=== PATIENT | male | born 1955 | race Two or more races ===

== ENCOUNTER 2019-10-12 17:36 | Inpatient (IN) | payer OTHER ==
[~2019-10-12] VITALS: Ht 175.3 cm; Wt 114.4 kg
[~2019-10-12 17:36] MED LIST: AMLO5TAB10 PO; LISI-130 PO
[2019-10-12] MEDS ORDERED: IV NORMAL SALINE 1000ML BAG 1,000 ML IV ONE (18:45)
[2019-10-12 19:02] LABS: BASO % 1 % (0-3); EOS % 1 % (0-3); HEMATOCRIT 43.2 % (39.0-53.0); HEMOGLOBIN 14.6 g/dL (13.0-17.5); LYMPH # 0.9 x10^3/uL (1.0-4.8); LYMPH % 19 % (24-48); MEAN CORPUSCULAR HEMOGLOBIN 30 pg (25-35); MEAN CORPUSCULAR HGB CONC 34 g/dL (31-37); MEAN CORPUSCULAR VOLUME 89 fL (79-100); MONO # 0.6 x10^3/uL (0.0-1.1); MONO % 12 % (0-9); NEUT # 3.2 x10^3/uL (1.8-7.7); NEUT % 68 % (31-73); PLATELET COUNT 255 x10^3/uL (140-400); RED BLOOD COUNT 4.85 x10^6/uL (4.30-5.70); WHITE BLOOD COUNT 4.7 x10^3/uL (4.0-11.0)
[2019-10-12 19:13] LABS: CALCIUM 9.5 mg/dL (8.5-10.1); CREATININE 0.9 mg/dL (0.7-1.3); GFR 85.8; POTASSIUM 3.9 mmol/L (3.5-5.1)
[2019-10-12 19:18] LABS: ALBUMIN 3.7 g/dL (3.4-5.0); TOTAL BILIRUBIN 5.8 mg/dL (0.2-1.0); TOTAL PROTEIN 7.5 g/dL (6.4-8.2)
[2019-10-12 19:59] LABS: BILIRUBIN,URINE MODERATE (NEG); CLARITY,URINE CLEAR; COLOR,URINE AMBER; NITRITE,URINE NEGATIVE (NEG); PROTEIN,URINE NEGATIVE (NEG-TRACE)
[2019-10-12 20:09] LABS: BACTERIA,URINE FEW /HPF (0-FEW); RBC,URINE OCC /HPF (0-2); SQUAMOUS EPITHELIAL CELL,UR OCC /LPF
[2019-10-12 20:10] LABS: AMORPHOUS SEDIMENT,UR PRESENT /HPF
--- NOTE | 2019-10-12 20:10 | RAD ---
Clinical History: Elevated liver enzymes. Technique: Sonographic examination of the right upper quadrant of the abdomen was performed and multiple static images were obtained. Comparison: none Findings: The study is limited by large body habitus. There is increased echogenicity in the liver which further limits ultrasound sensitivity for possible liver lesion. The gallbladder is contracted and not well evaluated. The common bile duct appears normal measures 5 mm in diameter. The right kidney is seen without hydronephrosis measures 12 cm in length. IMPRESSION: Fatty infiltration of the liver. No acute findings. Electronically signed by: Ricardo Chen III, MD (10/12/2019 8:06 PM) [facility]
--- NOTE | 2019-10-12 20:23 | PHYS DOC ---
Past Medical History Past Medical History: Hypertension Past Surgical History: Other Additional Past Surgical Histo: RT ankle/ pneumothorax R/T crush injury years ago Alcohol Use: Occasionally Additional Information: pt states he stopped drinking 8 months ago Drug Use: None Adult General Chief Complaint Chief Complaint: ABNORMAL LABS [facility] HPI Patient is a 63 year old male, accompanied by his , who presents to the emergency department after being sent over from urgent care. Patient states he was recently at urgent care and was diagnosed with a sinus infection about 2 weeks ago. Patient states that on September 24, 2019 he began taking Augmentin that was prescribed, he took all but 3 tablets of the 10 day prescription. He reports that he started itching a week ago so he went back to urgent care on October 09, 2019 and had some labs drawn. Patient denies ever having any rash, he states he thought that the itching was due to the medications and that is why he did not take the last 3 doses. He denies any shortness of breath, wheezing, swelling, or difficulty swallowing associated with itching. He states that on the he also noticed that his eyes appeared yellow and that his urine was darker than normal. He reported concern because he had a niece who had liver problems in the past and her only complaint was itching. He denies any pain at this time. Review of Systems Review of Systems Constitutional: Denies fever or chills [] Eyes: Denies change in visual acuity, redness, or eye pain; see HPI [] HENT: Denies nasal congestion or sore throat [] Respiratory: Denies cough or shortness of breath [] Cardiovascular: No additional information not addressed in HPI [] GI: Denies abdominal pain, nausea, vomiting, or diarrhea [] : Denies dysuria or hematuria; see HPI [] Musculoskeletal: Denies back pain or joint pain [] Integument: Denies rash or skin lesions [] Neurologic: Denies headache, focal weakness or sensory changes [] Complete systems were reviewed and found to be within normal limits, except as documented in this note. Current Medications Current Medications Current Medications Medications (Trade) Dose Ordered Sig/Desmond Start Time Stop Time Status Last Admin Dose Admin Sodium Chloride 1,000 ml @ 1,000 mls/hr 1X ONCE 10/12/19 18:45 10/12/19 19:44 DC 10/12/19 18:45 1,000 MLS/HR Allergies Allergies Physical Exam Physical Exam Constitutional: Well developed, well nourished, no acute distress, non-toxic hernandez earance, obses. [] HENT: Normocephalic, atraumatic, bilateral external ears normal, oropharynx moist, no oral exudates, nose normal. [] Eyes: PERRLA, EOMI, conjunctiva jaundiced, no discharge. [] Neck: Normal range of motion, no stridor. [] Cardiovascular:Heart rate regular rhythm, no murmur [] Lungs & Thorax: Bilateral breath sounds clear to auscultation, Respirations even and unlabored, no retractions, no respiratory distress [] Abdomen: Distended, Bowel sounds normal, soft, no tenderness, no masses, no pulsatile masses. [] Skin: Warm, dry, no erythema, no rash, jaundiced. [] Back: No tenderness [] Extremities: No cyanosis, ROM intact, no edema. [] Neurologic: Alert and oriented X 3, no focal deficits noted. [] Psychologic: Affect normal, judgement normal, mood normal. [] Current Patient Data Vital Signs Vital Signs Date Time Temp Pulse Resp B/P (MAP) Pulse Ox O2 Delivery O2 Flow Rate FiO2 10/12/19 20:00 66 24 141/84 (103) 99 Room Air 10/12/19 17:40 98.6 98.6 Lab Values Laboratory Tests Test 10/12/19 18:55 10/12/19 19:52 White Blood Count 4.7 x10^3/uL (4.0-11.0) Red Blood Count 4.85 x10^6/uL (4.30-5.70) Hemoglobin 14.6 g/dL (13.0-17.5) Hematocrit 43.2 % (39.0-53.0) Mean Corpuscular Volume 89 fL (79-100) Mean Corpuscular Hemoglobin 30 pg (25-35) Mean Corpuscular Hemoglobin Concent 34 g/dL (31-37) Red Cell Distribution Width 14.0 % (11.5-14.5) Platelet Count 255 x10^3/uL (140-400) Neutrophils (%) (Auto) 68 % (31-73) Lymphocytes (%) (Auto) 19 % (24-48) L Monocytes (%) (Auto) 12 % (0-9) H Eosinophils (%) (Auto) 1 % (0-3) Basophils (%) (Auto) 1 % (0-3) Neutrophils # (Auto) 3.2 x10^3/uL (1.8-7.7) Lymphocytes # (Auto) 0.9 x10^3/uL (1.0-4.8) L Monocytes # (Auto) 0.6 x10^3/uL (0.0-1.1) Eosinophils # (Auto) 0.0 x10^3/uL (0.0-0.7) Basophils # (Auto) 0.0 x10^3/uL (0.0-0.2) Sodium Level 143 mmol/L (136-145) Potassium Level 3.9 mmol/L (3.5-5.1) Chloride Level 105 mmol/L (98-107) Carbon Dioxide Level 27 mmol/L (21-32) Anion Gap 11 (6-14) Blood Urea Nitrogen 25 mg/dL (8-26) Creatinine 0.9 mg/dL (0.7-1.3) Estimated GFR (Cockcroft-Gault) 85.8 BUN/Creatinine Ratio 28 (6-20) H Glucose Level 93 mg/dL (70-99) Calcium Level 9.5 mg/dL (8.5-10.1) Magnesium Level 2.0 mg/dL (1.8-2.4) Total Bilirubin 5.8 mg/dL (0.2-1.0) H Direct Bilirubin 4.8 mg/dL (0.0-0.2) H Aspartate Amino Transferase (AST) 60 U/L (15-37) H Alanine Aminotransferase (ALT) 103 U/L (16-63) H Alkaline Phosphatase 208 U/L (46-116) H Total Protein 7.5 g/dL (6.4-8.2) Albumin 3.7 g/dL (3.4-5.0) Albumin/Globulin Ratio 1.0 (1.0-1.7) Lipase 155 U/L (73-393) Urine Collection Type Void Urine Color Luciana Urine Clarity Clear Urine pH 5.0 Urine Specific [place] 1.020 Urine Protein Negative mg/dL (NEG-TRACE) Urine Glucose (UA) Negative mg/dL (NEG) Urine Ketones (Stick) Negative mg/dL (NEG) Urine Blood Negative (NEG) Urine Nitrite Negative (NEG) Urine Bilirubin Moderate (NEG) Urine Urobilinogen Dipstick 1.0 mg/dL (0.2 mg/dL) Urine Leukocyte Esterase Negative (NEG) Urine RBC Occ /HPF (0-2) Urine WBC 5-10 /HPF (0-4) Urine Squamous Epithelial Cells Occ /LPF Urine Amorphous Sediment Present /HPF Urine Bacteria Few /HPF (0-FEW) Urine Mucus Slight /LPF Laboratory Tests 10/12/19 18:55 Laboratory Tests 10/12/19 18:55 EKG EKG [] Radiology/Procedures Radiology/Procedures PROCEDURE: ABDOMEN LTD Clinical History: Elevated liver enzymes. Technique: Sonographic examination of the right upper quadrant of the abdomen was performed and multiple static images were obtained. Comparison: none Findings: The study is limited by large body habitus. There is increased echogenicity in the liver which further limits ultrasound sensitivity for possible liver lesion. The gallbladder is contracted and not well evaluated. The common bile duct appears normal measures 5 mm in diameter. The right kidney is seen without hydronephrosis measures 12 cm in length. IMPRESSION: Fatty infiltration of the liver. No acute findings.[] Course & Med Decision Making Course & Med Decision Making Pertinent Labs and Imaging studies reviewed. (See chart for details) [address] Silveira who is the admitting physician, and care was assumed following discussion of patient. Will consult GI Patient's vital signs stable. Patient remains afebrile, appears nontoxic, respirations even and unlabored. Patient will be admitted to the med/surg floor. Patient's case and plan of care also discussed with Dr. Del Toro [] Dragon Disclaimer Dragon Disclaimer This electronic medical record was generated, in whole or in part, using a voice recognition dictation system. Departure Departure Impression: Primary Impression: Jaundice Additional Impression: Elevated liver enzymes Disposition: ADMITTED INPATIENT Admitting Physician: MONIKA (Fullbright) Condition: STABLE Referrals: ASHA GIL MD (PCP) Problem Qualifiers LOULOU EDWARDS APRN Oct 12, 2019 20:23
[2019-10-12] MEDS ORDERED: AMLO5TAB10 PO (22:00)
[2019-10-12] MEDS ORDERED: NAPR220C4 PO (22:11)
[2019-10-12] MEDS ORDERED: ACET325T9 PO (22:11)
[2019-10-12] MEDS: LISINOPRIL 20 MG TABLET PO SCH (22:41)
[2019-10-12] MEDS: amLODIPine BESYLATE 5 MG TABLET PO SCH (22:42)
[2019-10-12] MEDS ORDERED: NAPROXEN 250 MG TABLET PO PRN (22:45)
[2019-10-12 23:00] VITALS: BP 149/90
[2019-10-13] VITALS (7 sets, daily range): BP systolic 112–144; BP diastolic 61–77
--- NOTE | 2019-10-13 07:46 | PDOC1 ---
History and Physical Date of Admission Date of Admission DATE: 10/13/19 TIME: 07:42 Identification/Chief Complaint Chief Complaint Abdominal Pain Source Source: Chart review, Patient History of Present Illness History of Present Illness Mr Beaulieu is a 63 yo M w/ PMHx HTN brought to ED from urgent care by private vehicle by his for pruritis and jaundice. Patient states he was recently at urgent care and was diagnosed with a sinus infection about 2 weeks ago. He began taking Augmentin, but he stopped taking it on 10/09/19 due to yellowing of skin and pruritis. No pain. He reports that he started itching a week ago so he went back to urgent care on October 09, 2019 and had some labs drawn. He denies any shortness of breath, wheezing, swelling, or difficulty swallowing associated with itching and no pain. He states that on the he also noticed that his eyes appeared yellow and that his urine was darker than normal. He reported concern because he had a niece who had liver problems in the past and her only complaint was itching. He denies any pain at this time. Labs significant for Bilirubin 5.8, direct 4.8, AST 60, ALT 103, Alkaline phosphatase 206. RUQ US negative. Admitted for further dx and treatment. Past Medical History Pulmonary: No pertinent hx, Other CENTRAL NERVOUS SYSTEM: Other GI: No pertinent hx Heme/Onc: No pertinent hx Hepatobiliary: No pertinent hx Psych: No pertinent hx Musculoskeletal: Osteoarthritis, Other Infectious disease: No pertinent hx Renal/: No pertinent hx Endocrine: No pertinent hx Past Surgical History Past Surgical History RT ankle/ pneumothorax R/T crush injury years ago Past Surgical History: Other Family History Family History: Hypertension Social History Smoke: No ALCOHOL: occassional Drugs: None Current Problem List Problem List Problems Medical Problems: (1) Elevated liver enzymes Status: Acute (2) Jaundice Status: Acute Current Medications Current Medications Current Medications Sodium Chloride 1,000 ml @ 1,000 mls/hr 1X ONCE IV Last administered on 10/12/19at 18:45; Start 10/12/19 at 18:45; Stop 10/12/19 at 19:44; Status DC Amlodipine Besylate (Norvasc) 5 mg HS PO Last administered on 10/12/19at 22:42; Start 10/12/19 at 23:00 Lisinopril (Prinivil) 40 mg HS PO Last administered on 10/12/19at 22:41; Start 10/12/19 at 23:00 Naproxen (Naprosyn) 250 mg PRN BID PRN PO MODERATE PAIN 4-6; Start 10/12/19 at 22:45 Active Scripts Active Reported Tylenol (Acetaminophen) 325 Mg Tablet 650 Mg PO Q6HRS PRN Aleve (Naproxen Sodium) 220 Mg Capsule 220 Mg PO BID PRN Amlodipine Besylate 5 Mg Tablet 5 Mg PO HS Lisinopril 40 Mg Tablet 1 Tab PO HS Allergies Allergies: Coded Allergies: clavulanic acid (Verified Allergy, Intermediate, Itching, 10/13/19) jaundice ROS General: No: Chills, Night Sweats, Fatigue, Malaise, Appetite, Other PSYCHOLOGICAL ROS: No: Anxiety, Behavioral Disorder, Concentration difficultie, Decreased libido, Depression, Disorientation, Hallucinations, Hostility, Irritablity, Memory difficulties, Mood Swings, Obsessive thoughts, Physical abuse, Sexual abuse, Sleep disturbances, Suicidal ideation, Other Eyes: Yes Other (Scleral icterus); No Blurry vision, No Decreased vision, No Double vision, No Dry eyes, No Excessive tearing, No Eye Pain, No Itchy Eyes, No Loss of vision, No Photophobia, No Scotomata, No Uses contacts, No Uses glasses HEENT: No: Heacaches, Visual Changes, Hearing change, Nasal congestion, Nasal discharge, Oral lesions, Sinus pain, Sore Throat, Epistaxis, Sneezing, Snoring, Tinnitus, Vertigo, Vocal changes, Other ALLERGY AND IMMUNOLOGY: No: Hives, Insect Bite Sensitivity, Itchy/Watery Eyes, Nasal Congestion, Post Nasal Drip, Seasonal Allergies, Other Hematological and Lymphatic: No: Bleeding Problems, Blood Clots, Blood Transfusions, Brusing, Night Sweats, Pallor, Swollen Lymph Nodes, Other ENDOCRINE: No: Breast Changes, Galactorrhea, Hair Pattern Changes, Hot Flashes, Malaise/lethargy, Mood Swings, Palpitations, Polydipsia/polyuria, Skin Changes, Temperature Intolerance, Unexpected Weight Changes, Other Breast: No New/Changing Breast Lumps, No Nipple changes, No Nipple discharge, No Other Respiratory: No: Cough, Hemoptysis, Orthopnea, Pleuritic Pain, Shortness of breath, SOB with excertion, Sputum Changes, Stridor, Tachypnea, Wheezing, Other Cardiovascular: No Chest Pain, No Palpitations, No Orthopnea, No Paroxysmal Noc. Dyspnea, No Edema, No Lt Headedness, No Other Gastrointestinal: No Nausea, No Vomiting, No Abdominal Pain, No Diarrhea, No Constipation, No Melena, No Hematochezia, No Other Genitourinary: No Dysuria, No Frequency, No Incontinence, No Hematuria, No Retention, No Discharge, No Urgency, No Pain, No Flank Pain, No Other, No , No , No , No , No , No , No Musculoskeletal: No Gait Disturbance, No Joint Pain, No Joint Stiffness, No Joint Swelling, No Muscle Pain, No Muscular Weakness, No Pain In:, No Swelling In:, No Other Neurological: No Behavorial Changes, No Bowel/Bladder ControlChng, No Confusion, No Dizziness, No Gait Disturbance, No Headaches, No Impaired Coord/balance, No Memory Loss, No Numbness/Tingling, No Seizures, No Speech Problems, No Tremors, No Visual Changes, No Weakness, No Other Skin: Yes Pruritus, Yes Rash; No Dry Skin, No Eczema, No Hair Changes, No Lumps, No Mole Changes, No Mottling, No Nail Changes, No Skin Lesion Changes, No Other, No Acne Physical Exam General: Alert, Oriented X3, Cooperative, No acute distress HEENT: Atraumatic, PERRLA, EOMI, Mucous membr. moist/pink, Other (Scleral icterus) Lungs: Clear to auscultation, Normal air movement Heart: S1S2, RRR, no thrills, no rubs, no gallops, no murmurs Abdomen: Normal bowel sounds, Soft, No tenderness, No hepatosplenomegaly, No masses Rectal Exam: not examined Extremities: No clubbing, No cyanosis, No edema, Normal pulses, No tenderness/swelling Skin: No rashes, No breakdown, No significant lesion, Other (Jaundiced) Neuro: Normal gait, Normal speech, Strength at 5/5 X4 ext, Normal tone, Sensation intact, Cranial nerves 3-12 NL, Reflexes 2+ Psych/Mental Status: Mental status NL, Mood NL Vitals Vitals Vital Signs Date Time Temp Pulse Resp B/P (MAP) Pulse Ox O2 Delivery O2 Flow Rate FiO2 10/13/19 03:00 97.9 57 18 112/70 (84) 95 Room Air 97.9 Labs Labs Laboratory Tests Test 10/12/19 18:55 10/12/19 19:52 White Blood Count 4.7 x10^3/uL (4.0-11.0) Red Blood Count 4.85 x10^6/uL (4.30-5.70) Hemoglobin 14.6 g/dL (13.0-17.5) Hematocrit 43.2 % (39.0-53.0) Mean Corpuscular Volume 89 fL (79-100) Mean Corpuscular Hemoglobin 30 pg (25-35) Mean Corpuscular Hemoglobin Concent 34 g/dL (31-37) Red Cell Distribution Width 14.0 % (11.5-14.5) Platelet Count 255 x10^3/uL (140-400) Neutrophils (%) (Auto) 68 % (31-73) Lymphocytes (%) (Auto) 19 % (24-48) Monocytes (%) (Auto) 12 % (0-9) Eosinophils (%) (Auto) 1 % (0-3) Basophils (%) (Auto) 1 % (0-3) Neutrophils # (Auto) 3.2 x10^3/uL (1.8-7.7) Lymphocytes # (Auto) 0.9 x10^3/uL (1.0-4.8) Monocytes # (Auto) 0.6 x10^3/uL (0.0-1.1) Eosinophils # (Auto) 0.0 x10^3/uL (0.0-0.7) Basophils # (Auto) 0.0 x10^3/uL (0.0-0.2) Sodium Level 143 mmol/L (136-145) Potassium Level 3.9 mmol/L (3.5-5.1) Chloride Level 105 mmol/L (98-107) Carbon Dioxide Level 27 mmol/L (21-32) Anion Gap 11 (6-14) Blood Urea Nitrogen 25 mg/dL (8-26) Creatinine 0.9 mg/dL (0.7-1.3) Estimated GFR (Cockcroft-Gault) 85.8 BUN/Creatinine Ratio 28 (6-20) Glucose Level 93 mg/dL (70-99) Calcium Level 9.5 mg/dL (8.5-10.1) Magnesium Level 2.0 mg/dL (1.8-2.4) Total Bilirubin 5.8 mg/dL (0.2-1.0) Direct Bilirubin 4.8 mg/dL (0.0-0.2) Aspartate Amino Transf (AST/SGOT) 60 U/L (15-37) Alanine Aminotransferase (ALT/SGPT) 103 U/L (16-63) Alkaline Phosphatase 208 U/L (46-116) Total Protein 7.5 g/dL (6.4-8.2) Albumin 3.7 g/dL (3.4-5.0) Albumin/Globulin Ratio 1.0 (1.0-1.7) Lipase 155 U/L (73-393) Urine Collection Type Void Urine Color Luciana Urine Clarity Clear Urine pH 5.0 Urine Specific [place] 1.020 Urine Protein Negative mg/dL (NEG-TRACE) Urine Glucose (UA) Negative mg/dL (NEG) Urine Ketones (Stick) Negative mg/dL (NEG) Urine Blood Negative (NEG) Urine Nitrite Negative (NEG) Urine Bilirubin Moderate (NEG) Urine Urobilinogen Dipstick 1.0 mg/dL (0.2 mg/dL) Urine Leukocyte Esterase Negative (NEG) Urine RBC Occ /HPF (0-2) Urine WBC 5-10 /HPF (0-4) Urine Squamous Epithelial Cells Occ /LPF Urine Amorphous Sediment Present /HPF Urine Bacteria Few /HPF (0-FEW) Urine Mucus Slight /LPF Laboratory Tests Test 10/12/19 18:55 10/12/19 19:52 White Blood Count 4.7 x10^3/uL (4.0-11.0) Red Blood Count 4.85 x10^6/uL (4.30-5.70) Hemoglobin 14.6 g/dL (13.0-17.5) Hematocrit 43.2 % (39.0-53.0) Mean Corpuscular Volume 89 fL (79-100) Mean Corpuscular Hemoglobin 30 pg (25-35) Mean Corpuscular Hemoglobin Concent 34 g/dL (31-37) Red Cell Distribution Width 14.0 % (11.5-14.5) Platelet Count 255 x10^3/uL (140-400) Neutrophils (%) (Auto) 68 % (31-73) Lymphocytes (%) (Auto) 19 % (24-48) Monocytes (%) (Auto) 12 % (0-9) Eosinophils (%) (Auto) 1 % (0-3) Basophils (%) (Auto) 1 % (0-3) Neutrophils # (Auto) 3.2 x10^3/uL (1.8-7.7) Lymphocytes # (Auto) 0.9 x10^3/uL (1.0-4.8) Monocytes # (Auto) 0.6 x10^3/uL (0.0-1.1) Eosinophils # (Auto) 0.0 x10^3/uL (0.0-0.7) Basophils # (Auto) 0.0 x10^3/uL (0.0-0.2) Sodium Level 143 mmol/L (136-145) Potassium Level 3.9 mmol/L (3.5-5.1) Chloride Level 105 mmol/L (98-107) Carbon Dioxide Level 27 mmol/L (21-32) Anion Gap 11 (6-14) Blood Urea Nitrogen 25 mg/dL (8-26) Creatinine 0.9 mg/dL (0.7-1.3) Estimated GFR (Cockcroft-Gault) 85.8 BUN/Creatinine Ratio 28 (6-20) Glucose Level 93 mg/dL (70-99) Calcium Level 9.5 mg/dL (8.5-10.1) Magnesium Level 2.0 mg/dL (1.8-2.4) Total Bilirubin 5.8 mg/dL (0.2-1.0) Direct Bilirubin 4.8 mg/dL (0.0-0.2) Aspartate Amino Transf (AST/SGOT) 60 U/L (15-37) Alanine Aminotransferase (ALT/SGPT) 103 U/L (16-63) Alkaline Phosphatase 208 U/L (46-116) Total Protein 7.5 g/dL (6.4-8.2) Albumin 3.7 g/dL (3.4-5.0) Albumin/Globulin Ratio 1.0 (1.0-1.7) Lipase 155 U/L (73-393) Urine Collection Type Void Urine Color Luciana Urine Clarity Clear Urine pH 5.0 Urine Specific [place] 1.020 Urine Protein Negative mg/dL (NEG-TRACE) Urine Glucose (UA) Negative mg/dL (NEG) Urine Ketones (Stick) Negative mg/dL (NEG) Urine Blood Negative (NEG) Urine Nitrite Negative (NEG) Urine Bilirubin Moderate (NEG) Urine Urobilinogen Dipstick 1.0 mg/dL (0.2 mg/dL) Urine Leukocyte Esterase Negative (NEG) Urine RBC Occ /HPF (0-2) Urine WBC 5-10 /HPF (0-4) Urine Squamous Epithelial Cells Occ /LPF Urine Amorphous Sediment Present /HPF Urine Bacteria Few /HPF (0-FEW) Urine Mucus Slight /LPF Images Images RUQ US - The study is limited by large body habitus. There is increased echogenicity in the liver which further limits ultrasound sensitivity for poss ible liver lesion. The gallbladder is contracted and not well evaluated. The common bile duct appears normal measures 5 mm in diameter. The right kidney is seen without hydronephrosis measures 12 cm in length. IMPRESSION: Fatty infiltration of the liver. No acute findings. VTE Prophylaxis Ordered VTE Prophylaxis Devices: Yes VTE Pharmacological Prophylaxi: No Assessment/Plan Assessment/Plan A/P: Painless Jaundice - with recent sinusitis and Augmentin use - likely clavulanic acid related pruritis, cholestatic jaundice. Will consult GI check Hepatitis profile and CT A/P r/o pancreas abnormality, follow labs, try Benadryl for pruritus and urea cream Fatty liver - BMI 37, h/o alcohol use (sober since 01/2019) HTN - cont meds FEN - General diet PPX - SCDs FULL CODE Dispo - inpatient for painless jaundice JOSEPH TORRES MD Oct 13, 2019 07:46
[2019-10-13] MEDS ORDERED: ONDANSETRON PF 4 MG/2 ML VIAL. IVP PRN (08:00)
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
[2019-10-13] MEDS ORDERED: CONTRAST GIVEN. MC PRN (09:45)
[2019-10-13] MEDS ORDERED: diphenhydrAMINE HCL 25 MG CAPSULE PO PRN (09:45)
[2019-10-13] MEDS ORDERED: IOHEXOL 240 MG/ML 50ML VIAL. PO ONE (09:45)
[2019-10-13] MEDS ORDERED: IOHEXOL 300 MG/ML 100ML VIAL. IV ONE (09:45)
--- NOTE | 2019-10-13 11:34 | RAD ---
CT of the abdomen and pelvis with contrast 10/13/2019 11:25 AM Indication: Jaundice Comparison study: Right upper quadrant ultrasound, yesterday Technique: Multidetector CT imaging of the abdomen and pelvis was performed following the administration of IV contrast. Findings: Partially visualized lung bases demonstrate no acute abnormality. Right basilar rib deformities noted. Given portal phase imaging the liver has a grossly normal in attenuation. No focal hepatic lesions are identified. No intra or extrahepatic biliary dilatation is identified. No gross abnormality of the gallbladder is identified. Common bile duct is relatively well visualized and normal in caliber. No radiodense choledocholithiasis is identified. Nonspecific mildly prominent lymph nodes in the betzy hepatis are noted. The adrenal glands are normal in appearance. Spleen is normal in appearance. Scattered small renal cysts are seen. There are sub-5 mm renal hypodensities too small characterize, statistically also likely cysts. No acute pancreatic abnormality is identified. There is no bowel obstruction. No acute inflammatory changes involving the bowel are identified. Bladder is grossly unremarkable. Mild descending and distal colonic diverticulosis is noted. No evidence of acute diverticulitis is seen. The appendix is normal in appearance. Small fat filled umbilical hernia noted. IMPRESSION: 1. No CT evidence of acute intra-abdominal abnormality. No intra or extrahepatic biliary dilatation or radiodense choledocholithiasis is identified. 2. Nonspecific mildly prominent lymph nodes in the betzy hepatis. Consider 3-6 month follow-up exam to ensure stability or resolution. CT DOSING PQRS STATEMENT: One or more of the following individualized dose reduction techniques were utilized for this examination: 1. Automated exposure control 2. Adjustment of the mA and/or kV according to patient size 3. Use of iterative reconstruction technique Electronically signed by: Tommy España MD (10/13/2019 11:30 AM) [id number]
[2019-10-13] MEDS ORDERED: UREA 40% TOPICAL CREAM 28.3GM TUBE. TP PRN (12:00)
--- NOTE | 2019-10-13 12:10 | NUR ---
SW following. Discussed with RN, pt is from home. RN advised no SW needs at this time. SW will continue to follow should any discharge planning needs arise.
[2019-10-13] MEDS: PSYLLIUM HUSK (SUGAR FREE) 1 PKT PACKET PO SCH (13:09)
[2019-10-13] MEDS: CHOLESTYRAMINE/ASPARTAME 4 GM PACKET PO SCH (13:09)
[2019-10-13] MEDS: LISINOPRIL 20 MG TABLET PO SCH (22:44)
[2019-10-13] MEDS: amLODIPine BESYLATE 5 MG TABLET PO SCH (22:44)
[2019-10-14 03:00] VITALS: BP 117/63
[2019-10-14 07:00] VITALS: BP 111/71
--- NOTE | 2019-10-14 07:37 | PDOC ---
PROGRESS NOTES Chief Complaint Chief Complaint A/P: Painless Jaundice - with recent sinusitis and Augmentin use - likely clavulanic acid related pruritis, cholestatic jaundice. Will consult GI check Hepatitis pro file and CT A/P r/o pancreas abnormality, follow labs, try Benadryl for pruritus and urea cream Fatty liver - BMI 37, h/o alcohol use (sober since 01/2019) HTN - cont meds FEN - General diet PPX - SCDs FULL CODE Dispo - inpatient for painless jaundice History of Present Illness History of Present Illness Mr Beaulieu is a 63 yo M w/ PMHx HTN brought to ED from urgent care by private vehicle by his for pruritis and jaundice. Patient states he was recently at urgent care and was diagnosed with a sinus infection about 2 weeks ago. He began taking Augmentin, but he stopped taking it on 10/09/19 due to yellowing of skin and pruritis. No pain. He reports that he started itching a week ago so he went back to urgent care on October 09, 2019 and had some labs drawn. He denies any shortness of breath, wheezing, swelling, or difficulty swallowing associated with itching and no pain. He states that on the he also noticed that his eyes appeared yellow and that his urine was darker than normal. He reported concern because he had a niece who had liver problems in the past and her only complaint was itching. He denies any pain at this time. Labs significant for Bilirubin 5.8, direct 4.8, AST 60, ALT 103, Alkaline phosphatase 206. RUQ US negative. Admitted for further dx and treatment. Seen by GI in consultation. After 48 hours monitoring his alkaline phosphatase improved slightly and AST/ALT remained the same. CT scan revealed no pancreatic or biliary abnormalities. Likely cholestatic jaundice from clavulanic acid exposure. Will have outpatient f/u with GI for repeat labs and if no improvement likely may need to consider MRCP. He is feeling better today, wishes to return to work. No CP or SOB. Vitals Vitals Vital Signs Date Time Temp Pulse Resp B/P (MAP) Pulse Ox O2 Delivery O2 Flow Rate FiO2 10/14/19 03:00 97.7 58 18 117/63 (81) 97 Room Air 97.7 Physical Exam General: Alert, Oriented X3, Cooperative, No acute distress Heart: Regular rate, Normal S1, Normal S2 Lungs: Clear, Wheezing Abdomen: Normal bowel sounds, Soft, No tenderness, No hepatosplenomegaly, No masses Extremities: No clubbing, No cyanosis, No edema, Normal pulses, No tenderness/swelling Skin: No rashes, No breakdown, No significant lesion, Other (Jaundiced) Labs LABS Laboratory Tests Test 10/13/19 16:40 Hepatitis A IgM Antibody Nonreactive (Nonreactive) Hepatitis B Surface Antigen Nonreactive (Nonreactive) Hepatitis B Core IgM Antibody Nonreactive (Nonreactive) Hepatitis C IgG Antibody Nonreactive (Nonreactive) Assessment and Plan Assessmemt and Plan Problems Medical Problems: (1) Elevated liver enzymes Status: Acute (2) Jaundice Status: Acute Comment Review of Relevant I have reviewed the following items suresh (where applicable) has been applied. Labs Laboratory Tests Test 10/12/19 18:55 10/12/19 19:52 10/13/19 16:40 White Blood Count 4.7 x10^3/uL (4.0-11.0) Red Blood Count 4.85 x10^6/uL (4.30-5.70) Hemoglobin 14.6 g/dL (13.0-17.5) Hematocrit 43.2 % (39.0-53.0) Mean Corpuscular Volume 89 fL (79-100) Mean Corpuscular Hemoglobin 30 pg (25-35) Mean Corpuscular Hemoglobin Concent 34 g/dL (31-37) Red Cell Distribution Width 14.0 % (11.5-14.5) Platelet Count 255 x10^3/uL (140-400) Neutrophils (%) (Auto) 68 % (31-73) Lymphocytes (%) (Auto) 19 % (24-48) Monocytes (%) (Auto) 12 % (0-9) Eosinophils (%) (Auto) 1 % (0-3) Basophils (%) (Auto) 1 % (0-3) Neutrophils # (Auto) 3.2 x10^3/uL (1.8-7.7) Lymphocytes # (Auto) 0.9 x10^3/uL (1.0-4.8) Monocytes # (Auto) 0.6 x10^3/uL (0.0-1.1) Eosinophils # (Auto) 0.0 x10^3/uL (0.0-0.7) Basophils # (Auto) 0.0 x10^3/uL (0.0-0.2) Sodium Level 143 mmol/L (136-145) Potassium Level 3.9 mmol/L (3.5-5.1) Chloride Level 105 mmol/L (98-107) Carbon Dioxide Level 27 mmol/L (21-32) Anion Gap 11 (6-14) Blood Urea Nitrogen 25 mg/dL (8-26) Creatinine 0.9 mg/dL (0.7-1.3) Estimated GFR (Cockcroft-Gault) 85.8 BUN/Creatinine Ratio 28 (6-20) Glucose Level 93 mg/dL (70-99) Calcium Level 9.5 mg/dL (8.5-10.1) Magnesium Level 2.0 mg/dL (1.8-2.4) Total Bilirubin 5.8 mg/dL (0.2-1.0) Direct Bilirubin 4.8 mg/dL (0.0-0.2) Aspartate Amino Transf (AST/SGOT) 60 U/L (15-37) Alanine Aminotransferase (ALT/SGPT) 103 U/L (16-63) Alkaline Phosphatase 208 U/L (46-116) Total Protein 7.5 g/dL (6.4-8.2) Albumin 3.7 g/dL (3.4-5.0) Albumin/Globulin Ratio 1.0 (1.0-1.7) Lipase 155 U/L (73-393) Urine Collection Type Void Urine Color Luciana Urine Clarity Clear Urine pH 5.0 Urine Specific [place] 1.020 Urine Protein Negative mg/dL (NEG-TRACE) Urine Glucose (UA) Negative mg/dL (NEG) Urine Ketones (Stick) Negative mg/dL (NEG) Urine Blood Negative (NEG) Urine Nitrite Negative (NEG) Urine Bilirubin Moderate (NEG) Urine Urobilinogen Dipstick 1.0 mg/dL (0.2 mg/dL) Urine Leukocyte Esterase Negative (NEG) Urine RBC Occ /HPF (0-2) Urine WBC 5-10 /HPF (0-4) Urine Squamous Epithelial Cells Occ /LPF Urine Amorphous Sediment Present /HPF Urine Bacteria Few /HPF (0-FEW) Urine Mucus Slight /LPF Hepatitis A IgM Antibody Nonreactive (Nonreactive) Hepatitis B Surface Antigen Nonreactive (Nonreactive) Hepatitis B Core IgM Antibody Nonreactive (Nonreactive) Hepatitis C IgG Antibody Nonreactive (Nonreactive) Laboratory Tests Test 10/13/19 16:40 Hepatitis A IgM Antibody Nonreactive (Nonreactive) Hepatitis B Surface Antigen Nonreactive (Nonreactive) Hepatitis B Core IgM Antibody Nonreactive (Nonreactive) Hepatitis C IgG Antibody Nonreactive (Nonreactive) Medications Current Medications Sodium Chloride 1,000 ml @ 1,000 mls/hr 1X ONCE IV Last administered on 10/12/19at 18:45; Start 10/12/19 at 18:45; Stop 10/12/19 at 19:44; Status DC Amlodipine Besylate (Norvasc) 5 mg HS PO Last administered on 10/13/19at 22:44; Start 10/12/19 at 23:00 Lisinopril (Prinivil) 40 mg HS PO Last administered on 10/13/19at 22:44; Start 10/12/19 at 23:00 Naproxen (Naprosyn) 250 mg PRN BID PRN PO MODERATE PAIN 4-6; Start 10/12/19 at 22:45 Ondansetron HCl (Zofran) 4 mg PRN Q6HRS PRN IVP NAUSEA/VOMITING; Start 10/13/19 at 08:00 Iohexol (Omnipaque 240 Mg/ml) 30 ml 1X ONCE PO ; Start 10/13/19 at 09:45; Stop 10/13/19 at 09:46; Status DC Iohexol (Omnipaque 300 Mg/ml) 75 ml 1X ONCE IV ; Start 10/13/19 at 09:45; Stop 10/13/19 at 09:46; Status DC Info (CONTRAST GIVEN -- Rx MONITORING) 1 each PRN DAILY PRN MC SEE COMMENTS; Start 10/13/19 at 09:45; Stop 10/15/19 at 09:44 Diphenhydramine HCl (Benadryl) 25 mg PRN Q6HRS PRN PO ITCHING Last administered on 10/13/19at 21:02; Start 10/13/19 at 09:45 Psyllium Hydrophilic Mucilloid (Metamucil Fiber Packet) 1 pkt DAILY PO Last administered on 10/13/19at 13:09; Start 10/13/19 at 12:00 Cholestyramine Resin (Questran Light) 4 gm DAILY PO Last administered on 10/13/19at 13:09; Start 10/13/19 at 12:00 Urea (Meme Lo 40, X-Viate) 1 hernandez DAILY PRN TP itching; Start 10/13/19 at 12:00 Active Scripts Active Reported Tylenol (Acetaminophen) 325 Mg Tablet 650 Mg PO Q6HRS PRN Aleve (Naproxen Sodium) 220 Mg Capsule 220 Mg PO BID PRN Amlodipine Besylate 5 Mg Tablet 5 Mg PO HS Lisinopril 40 Mg Tablet 1 Tab PO HS Vitals/I & O Vital Sign - Last 24 Hours 10/13/19 10/13/19 10/13/19 10/13/19 11:00 15:00 19:00 20:00 Temp 98.4 97.8 97.6 98.4 97.8 97.6 Pulse 56 61 59 Resp 17 B/P (MAP) 144/61 (88) 127/77 (94) 129/68 (88) Pulse Ox 99 98 98 O2 Delivery Room Air Room Air Room Air Room Air 10/13/19 10/13/19 10/13/19 10/13/19 21:04 22:44 22:44 22:46 Temp 98.2 98.2 Pulse 49 49 49 49 Resp 18 B/P (MAP) 123/62 (82) 139/71 139/71 139/71 (93) Pulse Ox 98 O2 Delivery Room Air 10/14/19 03:00 Temp 97.7 97.7 Pulse 58 Resp 18 B/P (MAP) 117/63 (81) Pulse Ox 97 O2 Delivery Room Air Intake and Output 10/13/19 10/13/19 10/14/19 15:00 23:00 07:00 Intake Total 240 ml 0 ml Output Total 1 ml Balance 240 ml -1 ml JOSEPH TORRES MD Oct 14, 2019 07:37
[2019-10-14 08:54] LABS: HEMATOCRIT 43.3 % (39.0-53.0); HEMOGLOBIN 14.4 g/dL (13.0-17.5); RED BLOOD COUNT 4.83 x10^6/uL (4.30-5.70); RED CELL DISTRIBUTION WIDTH 14.1 % (11.5-14.5); WHITE BLOOD COUNT 4.6 x10^3/uL (4.0-11.0)
[2019-10-14] MEDS: PSYLLIUM HUSK (SUGAR FREE) 1 PKT PACKET PO SCH (08:56)
[2019-10-14] MEDS: CHOLESTYRAMINE/ASPARTAME 4 GM PACKET PO SCH (08:56)
[2019-10-14 09:03] LABS: PROTHROMBIN TIME PATIENT 11.5 SEC (11.7-14.0)
--- NOTE | 2019-10-14 09:54 | PDOC ---
Subjective: Subjective: Still really itchy, otherwise no complaints. Objective: Vital Signs: Vital Signs Date Time Temp Pulse Resp B/P (MAP) Pulse Ox O2 Delivery O2 Flow Rate FiO2 10/14/19 07:00 97.9 52 111/71 (84) 96 Room Air 97.9 10/14/19 03:00 18 Labs: Laboratory Tests Test 10/13/19 16:40 10/14/19 08:05 Hepatitis A IgM Antibody Nonreactive Hepatitis B Surface Antigen Nonreactive Hepatitis B Core IgM Antibody Nonreactive Hepatitis C IgG Antibody Nonreactive White Blood Count 4.6 x10^3/uL Red Blood Count 4.83 x10^6/uL Hemoglobin 14.4 g/dL Hematocrit 43.3 % Mean Corpuscular Volume 90 fL Mean Corpuscular Hemoglobin 30 pg Mean Corpuscular Hemoglobin Concent 33 g/dL Red Cell Distribution Width 14.1 % Platelet Count 250 x10^3/uL Prothrombin Time 11.5 SEC Prothromb Time International Ratio 0.9 Imaging: CT A/P w/ PO & IV contrast 10/13/19 Findings: Partially visualized lung bases demonstrate no acute abnormality. Right basilar rib deformities noted. Given portal phase imaging the liver has a grossly normal in attenuation. No focal hepatic lesions are identified. No intra or extrahepatic biliary dilatation is identified. No gross abnormality of the gallbladder is identified. Common bile duct is relatively well visualized and normal in caliber. No radiodense choledocholithiasis is identified. Nonspecific mildly prominent lymph nodes in the betzy hepatis are noted. The adrenal glands are normal in appearance. Spleen is normal in appearance. Scattered small renal cysts are seen. There are sub-5 mm renal hypodensities too small characterize, statistically also likely cysts. No acute pancreatic abnormality is identified. There is no bowel obstruction. No acute inflammatory changes involving the bowel are identified. Bladder is grossly unremarkable. Mild descending and distal colonic diverticulosis is noted. No evidence of acute diverticulitis is seen. The appendix is normal in appearance. Small fat filled umbilical hernia noted. IMPRESSION: 1. No CT evidence of acute intra-abdominal abnormality. No intra or extrahepatic biliary dilatation or radiodense choledocholithiasis is identified. 2. Nonspecific mildly prominent lymph nodes in the betzy hepatis. Consider 3-6 month follow-up exam to ensure stability or resolution. PE: GEN: NAD, up in chair, and nurse present LUNGS: CTAB HEART: RRR ABD: NABS, S/NT NEURO/PSYCH: A & O 3 A/P: Jaundice, pruritus - onset after Augmentin use Fatty liver -- Awaiting recheck of LFTs - pending this, possible DC w/ outpt follow-up. YASMINE RINALDI Oct 14, 2019 09:54
[2019-10-14 10:00] LABS: ALBUMIN 3.5 g/dL (3.4-5.0); ALBUMIN/GLOBULIN RATIO 0.9 (1.0-1.7); CALCIUM 9.3 mg/dL (8.5-10.1); CREATININE 0.7 mg/dL (0.7-1.3); GFR 114.6; POTASSIUM 3.8 mmol/L (3.5-5.1); TOTAL BILIRUBIN 5.9 mg/dL (0.2-1.0); TOTAL PROTEIN 7.4 g/dL (6.4-8.2)
[2019-10-14 11:00] VITALS: BP 120/74
--- NOTE | 2019-10-14 11:53 | PDOC3 ---
Discharge Summary Visit Information Date of Admission: Oct 12, 2019 Date of Discharge: Oct 14, 2019 Admitting Diagnosis: Painless jaundice Final Diagnosis Problems Medical Problems: (1) Elevated liver enzymes Status: Acute (2) Jaundice Status: Acute Brief Hospital Course Allergies Allergies Coded Allergies Type Severity Reaction Last Updated Verified clavulanic acid Allergy Intermediate Itching 10/13/19 Yes Vital Signs Vital Signs Date Time Temp Pulse Resp B/P (MAP) Pulse Ox O2 Delivery O2 Flow Rate FiO2 10/14/19 07:00 97.9 52 111/71 (84) 96 Room Air 97.9 10/14/19 03:00 18 Lab Results Laboratory Tests Test 10/12/19 18:55 10/12/19 19:52 10/13/19 16:40 10/14/19 08:05 White Blood Count 4.7 x10^3/uL (4.0-11.0) 4.6 x10^3/uL (4.0-11.0) Red Blood Count 4.85 x10^6/uL (4.30-5.70) 4.83 x10^6/uL (4.30-5.70) Hemoglobin 14.6 g/dL (13.0-17.5) 14.4 g/dL (13.0-17.5) Hematocrit 43.2 % (39.0-53.0) 43.3 % (39.0-53.0) Mean Corpuscular Volume 89 fL (79-100) 90 fL (79-100) Mean Corpuscular Hemoglobin 30 pg (25-35) 30 pg (25-35) Mean Corpuscular Hemoglobin Concent 34 g/dL (31-37) 33 g/dL (31-37) Red Cell Distribution Width 14.0 % (11.5-14.5) 14.1 % (11.5-14.5) Platelet Count 255 x10^3/uL (140-400) 250 x10^3/uL (140-400) Neutrophils (%) (Auto) 68 % (31-73) Lymphocytes (%) (Auto) 19 % (24-48) Monocytes (%) (Auto) 12 % (0-9) Eosinophils (%) (Auto) 1 % (0-3) Basophils (%) (Auto) 1 % (0-3) Neutrophils # (Auto) 3.2 x10^3/uL (1.8-7.7) Lymphocytes # (Auto) 0.9 x10^3/uL (1.0-4.8) Monocytes # (Auto) 0.6 x10^3/uL (0.0-1.1) Eosinophils # (Auto) 0.0 x10^3/uL (0.0-0.7) Basophils # (Auto) 0.0 x10^3/uL (0.0-0.2) Sodium Level 143 mmol/L (136-145) 142 mmol/L (136-145) Potassium Level 3.9 mmol/L (3.5-5.1) 3.8 mmol/L (3.5-5.1) Chloride Level 105 mmol/L (98-107) 103 mmol/L (98-107) Carbon Dioxide Level 27 mmol/L (21-32) 31 mmol/L (21-32) Anion Gap 11 (6-14) 8 (6-14) Blood Urea Nitrogen 25 mg/dL (8-26) 12 mg/dL (8-26) Creatinine 0.9 mg/dL (0.7-1.3) 0.7 mg/dL (0.7-1.3) Estimated GFR (Cockcroft-Gault) 85.8 114.6 BUN/Creatinine Ratio 28 (6-20) 17 (6-20) Glucose Level 93 mg/dL (70-99) 91 mg/dL (70-99) Calcium Level 9.5 mg/dL (8.5-10.1) 9.3 mg/dL (8.5-10.1) Magnesium Level 2.0 mg/dL (1.8-2.4) Total Bilirubin 5.8 mg/dL (0.2-1.0) 5.9 mg/dL (0.2-1.0) Direct Bilirubin 4.8 mg/dL (0.0-0.2) Aspartate Amino Transf (AST/SGOT) 60 U/L (15-37) 76 U/L (15-37) Alanine Aminotransferase (ALT/SGPT) 103 U/L (16-63) 127 U/L (16-63) Alkaline Phosphatase 208 U/L (46-116) 194 U/L (46-116) Total Protein 7.5 g/dL (6.4-8.2) 7.4 g/dL (6.4-8.2) Albumin 3.7 g/dL (3.4-5.0) 3.5 g/dL (3.4-5.0) Albumin/Globulin Ratio 1.0 (1.0-1.7) 0.9 (1.0-1.7) Lipase 155 U/L (73-393) Urine Collection Type Void Urine Color Luciana Urine Clarity Clear Urine pH 5.0 Urine Specific [place] 1.020 Urine Protein Negative mg/dL (NEG-TRACE) Urine Glucose (UA) Negative mg/dL (NEG) Urine Ketones (Stick) Negative mg/dL (NEG) Urine Blood Negative (NEG) Urine Nitrite Negative (NEG) Urine Bilirubin Moderate (NEG) Urine Urobilinogen Dipstick 1.0 mg/dL (0.2 mg/dL) Urine Leukocyte Esterase Negative (NEG) Urine RBC Occ /HPF (0-2) Urine WBC 5-10 /HPF (0-4) Urine Squamous Epithelial Cells Occ /LPF Urine Amorphous Sediment Present /HPF Urine Bacteria Few /HPF (0-FEW) Urine Mucus Slight /LPF Hepatitis A IgM Antibody Nonreactive (Nonreactive) Hepatitis B Surface Antigen Nonreactive (Nonreactive) Hepatitis B Core IgM Antibody Nonreactive (Nonreactive) Hepatitis C IgG Antibody Nonreactive (Nonreactive) Prothrombin Time 11.5 SEC (11.7-14.0) Prothromb Time International Ratio 0.9 (0.8-1.1) Laboratory Tests Test 10/13/19 16:40 10/14/19 08:05 Hepatitis A IgM Antibody Nonreactive (Nonreactive) Hepatitis B Surface Antigen Nonreactive (Nonreactive) Hepatitis B Core IgM Antibody Nonreactive (Nonreactive) Hepatitis C IgG Antibody Nonreactive (Nonreactive) White Blood Count 4.6 x10^3/uL (4.0-11.0) Red Blood Count 4.83 x10^6/uL (4.30-5.70) Hemoglobin 14.4 g/dL (13.0-17.5) Hematocrit 43.3 % (39.0-53.0) Mean Corpuscular Volume 90 fL (79-100) Mean Corpuscular Hemoglobin 30 pg (25-35) Mean Corpuscular Hemoglobin Concent 33 g/dL (31-37) Red Cell Distribution Width 14.1 % (11.5-14.5) Platelet Count 250 x10^3/uL (140-400) Prothrombin Time 11.5 SEC (11.7-14.0) Prothromb Time International Ratio 0.9 (0.8-1.1) Sodium Level 142 mmol/L (136-145) Potassium Level 3.8 mmol/L (3.5-5.1) Chloride Level 103 mmol/L (98-107) Carbon Dioxide Level 31 mmol/L (21-32) Anion Gap 8 (6-14) Blood Urea Nitrogen 12 mg/dL (8-26) Creatinine 0.7 mg/dL (0.7-1.3) Estimated GFR (Cockcroft-Gault) 114.6 BUN/Creatinine Ratio 17 (6-20) Glucose Level 91 mg/dL (70-99) Calcium Level 9.3 mg/dL (8.5-10.1) Total Bilirubin 5.9 mg/dL (0.2-1.0) Aspartate Amino Transf (AST/SGOT) 76 U/L (15-37) Alanine Aminotransferase (ALT/SGPT) 127 U/L (16-63) Alkaline Phosphatase 194 U/L (46-116) Total Protein 7.4 g/dL (6.4-8.2) Albumin 3.5 g/dL (3.4-5.0) Albumin/Globulin Ratio 0.9 (1.0-1.7) Brief Hospital Course Mr Beaulieu is a 63 yo M w/ PMHx HTN brought to ED from urgent care by private vehicle by his for pruritis and jaundice. Patient states he was recently at urgent care and was diagnosed with a sinus infection about 2 weeks ago. He began taking Augmentin, but he stopped taking it on 10/09/19 due to yellowing of skin and pruritis. No pain. He reports that he started itching a week ago so he went back to urgent care on October 09, 2019 and had some labs drawn. He denies any shortness of breath, wheezing, swelling, or difficulty swallowing associated with itching and no pain. He states that on the he also noticed that his eyes appeared yellow and that his urine was darker than normal. He reported concern because he had a niece who had liver problems in the past and her only complaint was itching. He denies any pain at t his time. Labs significant for Bilirubin 5.8, direct 4.8, AST 60, ALT 103, Alkaline phosphatase 206. RUQ US negative. Admitted for further dx and treatment. Seen by GI in consultation. After 48 hours monitoring his alkaline phosphatase improved slightly and AST/ALT remained the same. CT scan revealed no pancreatic or biliary abnormalities. Likely cholestatic jaundice from clavulanic acid exposure. Will have outpatient f/u with GI for repeat labs and if no improvement likely may need to consider MRCP. He is feeling better today, wishes to return to work. No CP or SOB. Problem list: Painless Jaundice - with recent sinusitis and Augmentin use - likely clavulanic acid related pruritis, cholestatic jaundice. Will consult GI check Hepatitis profile and CT A/P r/o pancreas abnormality, follow labs, try Benadryl for pruritus and urea cream Fatty liver - BMI 37, h/o alcohol use (sober since 01/2019) HTN - cont meds Greater than 30 minutes spent on d/c Discharge Information Condition at Discharge: Improved Follow Up: Weeks Disposition/Orders: D/C to Home Scheduled Amlodipine Besylate (Amlodipine Besylate) 5 Mg Tablet, 5 MG PO HS for blood pressure, (Reported) Entered as Reported by: YANNI BOO on 10/12/192199 Last Taken: Unknown Dose on 10/11/19 Last Action: Continued on 10/12/192230 by YANNI BOO Lisinopril (Lisinopril) 40 Mg Tablet, 1 TAB PO HS for blood pressure, #30 Ref 5 (Reported) Entered as Reported by: CHANG ANDERSON on 10/02/17 0326 Last Action: Continued on 10/12/192230 by YANNI BOO Scheduled PRN Acetaminophen (Tylenol) 325 Mg Tablet, 650 MG PO Q6HRS PRN for MILD PAIN / TEMP, (Reported) Entered as Reported by: YANNI BOO on 10/12/192210 Last Action: New Order on 10/12/192210 by YANNI BOO Naproxen Sodium (Aleve) 220 Mg Capsule, 220 MG PO BID PRN for PAIN, (Reported) Entered as Reported by: YANNI BOO on 10/12/192210 Last Action: Converted on 10/12/192230 by JOSEPH MIRELES MD Oct 14, 2019 11:53
--- NOTE | 2019-10-14 12:43 | NUR ---
Discharge Note: JOE NIETO Discharge instructions and discharge home medications reviewed with Patient and a copy given. All questions have been answered and understanding verbalized. The following instructions and handouts were given: Jaundice Discontinued lines and drains: Peripheral IV intact. Patient discharged to Home or Self Care with Self via Ambulated
[2019-10-14] MEDS ORDERED: LIDO30CR TP (13:08)
== END 2019-10-14 12:49 | disposition home or self-care (01) | DRG 445 ==
LOC: ER 17:36 → 5 SOUTH 20:20
PROVIDERS: ADMIT Family Medicine; ATTEND Family Medicine
DX: K83.1 Obstruction of bile duct (principal); R17 Unspecified jaundice; F17.210 Nicotine dependence, cigarettes, uncomplicated; I10 Essential (primary) hypertension; L29.9 Pruritus, unspecified; M19.071 Primary osteoarthritis, right ankle and foot; Z68.37 Body mass index [BMI] 37.0-37.9, adult; Z77.098 Contact with and (suspected) exposure to other hazardous, chiefly nonmedicinal, chemicals; Z82.49 Family history of ischemic heart disease and other diseases of the circulatory system; M19.90 Unspecified osteoarthritis, unspecified site
CPT/HCPCS: 36415; 74177; 76705; 80053; 81001; 82248; 83690; 83735; 85025; 85027; 85610; 86705; 86709; 86803; 87086; 87340; 96360; J7030; Q0163; 99285-25; G0378

== ENCOUNTER → 2020-03-21 | Outpatient (CLI) | payer OTHER ==
[~2020-03-21] MED LIST changes: +ACET325T9 PO; +LIDO30CR TP; +NAPR220C4 PO
--- NOTE | 2020-03-21 16:05 | CARD ---
MR#: [id number] Date of Study: 03/21/2020 Ordering Physician: SIMÓN SHAIKH, Referring Physician: SIMÓN SHAIKH, Tech: Mayi Reynolds SHAWN APPROVED REPORT EXAM: Two-dimensional and M-mode echocardiogram with Doppler and color Doppler. Other Information Quality : Good INDICATION Chest Pain 2D DIMENSIONS RVDd2.7 (2.9-3.5cm)Left Atrium(2D)2.8 (1.6-4.0cm) IVSd0.9 (0.7-1.1cm)Aortic Root(2D)3.0 (2.0-3.7cm) LVDd4.9 (3.9-5.9cm)LVOT Diameter2.0 (1.8-2.4cm) PWd1.0 (0.7-1.1cm)LVDs3.0 (2.5-4.0cm) FS (%) 38.8 %SV78.3 ml Aortic Valve AoV Peak Cedrick.146.9cm/sAoV VTI28.2cm AO Peak GR.8.6mmHgLVOT Peak Cedrick.146.2cm/s AO Mean GR.4mmHgAVA (VMAX)2.97cm2 AVRIL (VTI)3.30cm2 Mitral Valve MV E Qygnchid58.5cm/sMV DECEL [id number] MV A Jdtkvvdn41.2cm/sE/A Ratio1.1 Pulmonary Vein S1 Yrwsosds66.1cm/sD2 Uwvybjzm26.8cm/s LEFT VENTRICLE The left ventricle is normal size. There is normal left ventricular wall thickness. The left ventricu lar systolic function is normal and the ejection fraction is within normal range. The Ejection Fracti on is 55-60%. There is normal LV segmental wall motion. Transmitral Doppler flow pattern is Grade I-a bnormal relaxation pattern. RIGHT VENTRICLE The right ventricle is normal size. The right ventricular systolic function is normal. ATRIA The left atrium size is normal. The right atrium size is normal. The interatrial septum is intact wit h no evidence for an atrial septal defect or patent foramen ovale as noted on 2-D or Doppler imaging. AORTIC VALVE The aortic valve is calcified but opens well. Doppler and Color Flow revealed no significant aortic r egurgitation. There is no significant aortic valvular stenosis. MITRAL VALVE The mitral valve is calcified but opens well. There is no evidence of mitral valve prolapse. There is no mitral valve stenosis. Doppler and Color Flow revealed no mitral valve regurgitation noted. TRICUSPID VALVE The tricuspid valve is normal in structure and function. Doppler and Color Flow revealed no tricuspid valve regurgitation noted. There is no tricuspid valve stenosis. PULMONIC VALVE The pulmonic valve is not well visualized. Doppler and Color Flow revealed trace pulmonic valvular re gurgitation. There is no pulmonic valvular stenosis. GREAT VESSELS The aortic root is normal in size. The ascending aorta is normal in size. The IVC is normal in size a nd collapses >50% with inspiration. PERICARDIAL EFFUSION There is no evidence of significant pericardial effusion. Critical Notification Critical Value: No <Conclusion> The left ventricle is normal size. The left ventricular systolic function is normal and the ejection fraction is within normal range. The Ejection Fraction is 55-60%. There is normal LV segmental wall motion. Doppler and Color Flow revealed no significant aortic regurgitation. There is no significant aortic valvular stenosis. Doppler and Color Flow revealed no mitral valve regurgitation noted. Doppler and Color Flow revealed no tricuspid valve regurgitation noted. Doppler and Color Flow revealed trace pulmonic valvular regurgitation. Signed by : Joo Mendez MD Electronically Approved : 03/21/2020 16:04:30
== END | disposition home or self-care (01) ==
LOC: ECHO 12:39
PROVIDERS: ATTEND Internal Medicine Cardiovascular Disease
DX: I08.0 Rheumatic disorders of both mitral and aortic valves (principal)
CPT/HCPCS: 93306